=== PATIENT | female | born 1945 | race Caucasian/White ===

== ENCOUNTER → 2016-06-24 | Outpatient (CLI) | payer MEDICARE ==
[~2016-06-24] MED LIST: ACETAMINOPHEN PO; AMLODIPINE BESY10 MG PO; ASPIRIN81 M2 PO; CELECOXIB200 MG PO; DIAZEPAM PO; ESOMEPRAZOLE MA40 MG PO; LEVOTHYROXINE50 MCG PO; OMEPRAZOLE40 M1 PO; PERCOCET 5/321 UDTAB PO; TRAMADOL HCL50 M2 PO; TUMS500 MG PO; VALSARTAN160 MG PO; VITAMIN B122500 MCG PO; VITAMIN C1000 M2 PO; VITAMIN D250000 UNIT PO
--- NOTE | ~2016-06-24 | MR165 ---
STS. [facility] A Service of [facility] & [facility] RADIOLOGY TEXT RESULTS PATIENT: JOSE RAFAEL RESENDIZ LOCATION: [facility] : 47 UNIT #: [id number] AGE: [address]: Peewee Dang MD SEX: F ORDER DR: [id number] [address] [address] [id number] O MR#: [id number] Acc #: [id number] NAME: JOSE RAFAEL RESENDIZ : 1945 SEX: F STUDY DATE/TIME: 06/24/2016 13:08 UNIT: [facility] ROOM: STUDY DESCRIPTION: MR Shoulder Wo Contrast Rt Attending Physician: Peewee Dang M.D. Referring Physician: Peewee Dang M.D. Ordering Physician: Peewee Dang M.D. Primary Care Physician: Arleen Lo M.D. MRI CENTER REPORT This report is preliminary unless electronic signature is present. EXAM MRI of the right shoulder without contrast HISTORY Right shoulder pain for 2 years. Limited range of motion. TECHNIQUE Multiplanar multiecho imaging was performed of the right shoulder, utilizing a high field magnet and dedicated protocol. FINDINGS Examination demonstrates advanced glenohumeral joint osteoarthritis with extensive full-thickness cartilage loss, glenoid and humeral head. There is small amount of subchondral edema and cystic change along the humeral head, as well as extensive cystic change and edema, glenoid. There is a small glenohumeral joint effusion. No loose body. The AC joint demonstrates mild AC joint arthropathy with predominately superiorly directed distal clavicular osteophyte capsular hypertrophy. No active inflammation. There is supraspinatus tendinopathy with focal attenuation of the cuff near the junction of the supraspinatus and infraspinatus tendons, but no definitive full-thickness or discrete partial-thickness tear. Infraspinatus appears intact. Teres minor and subscapularis tendons unremarkable. No muscle atrophy or edema. There is circumferential degeneration of the labrum as a component of glenohumeral joint arthritis. The long tendon of the biceps appears intact. Biceps anchor appears intact. Deltoid and extraarticular soft tissues unremarkable. IMPRESSION STS. [facility] A Service of [facility] & [facility] RADIOLOGY TEXT RESULTS PATIENT: JOSE RAFAEL RESENDIZ LOCATION: [facility] : 47 UNIT #: [id number] AGE: [address]: Peewee Dang MD SEX: F ORDER DR: 1. Advanced glenohumeral joint osteoarthritis with a moderate amount of subchondral edema and cystic change and a small joint effusion compatible with active synovitis. 2. Supraspinatus tendinopathy predominately involving the insertional and pre-insertional fibers. The supraspinatus and infraspinatus tendons are also mildly attenuated, which may reflect some chronic change, but no evidence of full-thickness or partial-thickness tear. Dictated by... Dav Franco M.D. THIS IS AN ELECTRONICALLY VERIFIED REPORT Dav Franco M.D. at 06/28/2016 1:19 PM AYLA/caryn TD: 06/28/2016 12:49 JOB #: [id number] MRI CENTER REPORT Page 1 of 1
--- NOTE | ~2016-06-24 | MR164 ---
[facility] A Service of [facility] & [facility] RADIOLOGY TEXT RESULTS PATIENT: JOSE RAFAEL RESENDIZ LOCATION: [facility] : 47 UNIT #: [id number] AGE: [address]: Peewee Dang MD SEX: F ORDER DR: [id number] [place] [id number] O MR#: [id number] Acc #: [id number] NAME: JOSE RAFAEL RESENDIZ : 1945 SEX: F STUDY DATE/TIME: 06/24/2016 13:37 UNIT: [facility] ROOM: STUDY DESCRIPTION: MR Shoulder Wo Contrast Lt Attending Physician: Peewee Dang M.D. Referring Physician: Peewee Dang M.D. Ordering Physician: Peewee Dang M.D. Primary Care Physician: Arleen Lo M.D. MRI CENTER REPORT This report is preliminary unless electronic signature is present. EXAM MRI of the left shoulder without contrast HISTORY Left shoulder pain for 3 years, worse over the past year, getting progressively worse. TECHNIQUE Multiplanar multiecho imaging was performed of the left shoulder utilizing a high field magnet and dedicated protocol. FINDINGS Examination demonstrates advanced glenohumeral joint osteoarthritis with extensive full-thickness cartilage loss, humeral head and glenoid. Moderate amount of subchondral edema. Small joint effusion. There is a prominent inferiorly-directed osteophyte which may represent a significant blocked full range of motion. Mild AC joint arthropathy. The rotator cuff appears intact without a tear. There is attenuation of the rotator cuff which could reflect chronic tendinopathy but again no discrete partial or full-thickness tear. There is also mild diffuse atrophy of the cuff muscles, which may be related to disuse. The biceps anchor and long tendon of the biceps appear intact. There is circumferential degeneration of the labrum in conjunction with glenohumeral joint arthritis. The deltoid and extraarticular soft tissues unremarkable. Patient does demonstrate mild AC joint arthropathy with some periarticular inflammation. IMPRESSION 1. Advanced glenohumeral joint osteoarthritis. 2. Diffuse thinning of the rotator cuff, primarily the supraspinatus and infraspinatus tendons. This could reflect chronic tendinopathy. This is in conjunction with rotator cuff muscle atrophy probably as a STS. [facility] A Service of [facility] RADIOLOGY TEXT RESULTS PATIENT: JOSE RAFAEL RESENDIZ LOCATION: [facility] : 49 UNIT #: [id number] AGE: [address]: Peewee Dang MD SEX: F ORDER DR: component of disuse. 3. Mild AC joint arthropathy with some periarticular inflammation. Dictated by... Dav Franco M.D. THIS IS AN ELECTRONICALLY VERIFIED REPORT Dav Franco M.D. at 06/28/2016 1:19 PM Stefanie TD: 06/28/2016 12:56 JOB #: [id number] MRI CENTER REPORT Page 1 of 1
== END | disposition home or self-care (01) ==
LOC: SMRI 12:28
DX: M13.811 Other specified arthritis, right shoulder (principal); M75.81 Other shoulder lesions, right shoulder
CPT/HCPCS: 73221

== ENCOUNTER 2016-11-05 10:27 | Inpatient (IN) | payer MEDICARE ==
[~2016-11-05] VITALS: Ht 162.6 cm; Wt 82.4 kg
--- NOTE | ~2016-11-05 | DS ---
Unit #: [id number] #: [id number] Patient: JOSE RAFAEL RESENDIZ [id number] [address] [place], [place] [address] [id number] I MR#: [id number] NAME: JOSE RAFAEL RESENDIZ ROOM: 469 Age: 71 Sex: F Admission Date: 11/05/2016 : 1945 Discharge Date: 11/08/2016 Attending Physician: Damon Hanson M.D. Primary Care Physician: Arleen Lo M.D. DISCHARGE SUMMARY ADMITTING DIAGNOSIS Left total shoulder arthroplasty. DISCHARGE DIAGNOSIS Left total shoulder arthroplasty. PROCEDURE PERFORMED Left total shoulder arthroplasty. BRIEF HISTORY On 11/05/2016, the patient was admitted for a left total shoulder arthroplasty. The patient tolerated the procedure well and was progressed to clear regular diet as tolerated. She had labs performed throughout her hospital stay, which included CBC, which was within normal limits on both 11/06/2016 and 11/07/2016. Throughout her hospital stay, she was placed in a shoulder immobilizer to her left upper extremity and was made nonweightbearing to the operative extremity. She began physical therapy on postop day 1 and tolerated this well. The patient's pain was well controlled throughout her hospital stay as well. On postop day 2, she was able to perform range of motion of her fingers and wrist without any difficulty. On postop day 3, again she appeared to be doing well and was able to perform range of motion and was stable for discharge. CONDITION AT DISCHARGE Stable. DISPOSITION Home. DISCHARGE MEDICATIONS Home medications include Valium 5 mg p.o. q.6 as needed for anxiety, amlodipine 10 mg p.o. at bedtime, valsartan 160 mg p.o. at bedtime, aspirin 81 mg p.o. daily. She is to discontinue tramadol. Omeprazole 40 mg p.o. daily, calcium carbonate 1000 mg p.o. t.i.d., levothyroxine 50 mcg p.o. daily, vitamin B12 of 1000 mcg p.o. daily, vitamin C 1000 mg p.o. daily, vitamin D2 of 50,000 units p.o. weekly. She may use Percocet 5/325 mg 1 to 2 tabs p.o. q.4 hours p.r.n. pain, dispensed #65 with zero refills. DIET The patient may resume regular diet. DISCHARGE INSTRUCTIONS AND FOLLOWUP Unit #: [id number] #: [id number] Patient: JOSE RAFAEL RESENDIZ The patient is stable for discharge home today. We would like to consult [facility] for the patient prior to discharge and order for her to have home health. She is to follow up with Dr. Hanson in 2 weeks. Remain nonweightbearing to her left upper extremity and remain in her sling. She may remove the sling 2 to 3 times per today to perform pendulums and range of motion of her elbow, wrist, and hand. Daily dressing changes to the left upper extremity incision. Please send the patient home with dressing. She may shower but is not to get the incision wet, must keep occlusive dressing over her incision when showering. Dictated by... Radha Mary PA-C for Alix Wray/haily TD: 11/09/2016 23:49 JOB #: [id number] CC: Saray Foster, [facility] DISCHARGE SUMMARY Page 1 of 1 X X DISCHARGE SUMMARY
--- NOTE | ~2016-11-05 | EKG ---
PATIENT: JOSE RAFAEL RESENDIZ UNIT #: [id number] Ventricular Rate: 76 BPM Atrial Rate: 76 BPM P-R Interval: 186 ms QRS Duration: 82 ms Q-T Interval: 364 ms QTC Calculation(Bezet): 409 ms P [place]: 50 degrees Calculated R [place]: -4 degrees Calculated T [place]: 26 degrees Diagnosis Line: Normal sinus rhythm Diagnosis Line: Normal ECG Diagnosis Line: No previous ECGs available Diagnosis Line: Confirmed by ENOC LANDRY MD ([id number]) on 11/07/2016 Diagnosis Line: 10:58:29 PM INTERPRETING MD: GRIS DODSON
--- NOTE | ~2016-11-05 | CR226 ---
[facility] A Service of [facility] & [facility] RADIOLOGY TEXT RESULTS PATIENT: JOSE RAFAEL RESENDIZ LOCATION: [facility] 46- : 47 UNIT #: [id number] AGE: [address]: Damon Hanson MD SEX: F ORDER DR: [id number] [facility] [address] [place], [place] [address] [id number] I MR#: [id number] Acc #: [id number] NAME: JOSE RAFAEL RESENDIZ. : 1945 SEX: F STUDY DATE/TIME: 11/05/2016 16:52 UNIT: [facility] ROOM: [facility] STUDY DESCRIPTION: CR Shoulder 1 View Lt Attending Physician: Damon Hanson M.D. Ordering Physician: Damon Hanson M.D. Primary Care Physician: Arleen Lo M.D. MEDICAL IMAGING REPORT This report is preliminary unless electronic signature is present EXAM Left shoulder. INDICATIONS Left shoulder replacement. Evaluate prosthesis. COMPARISON No comparison. FINDINGS An AP view of the left shoulder was obtained. A left shoulder prosthesis is now present. There is no fracture or dislocation visible. Dictated by... Lyle Garduno M.D. THIS IS AN ELECTRONICALLY VERIFIED REPORT Lyle Garduno M.D. at 11/06/2016 7:57 PM Louis TD: 11/06/2016 12:56 JOB #: [id number] MEDICAL IMAGING REPORT Page 1 of 1 COPY
--- NOTE | ~2016-11-05 | OR ---
Unit #: [id number] #: [id number] Patient: ODALIS RESENDIZ [id number] [address] [address] [id number] I MR#: [id number] NAME: ODALIS RESENDIZ ROOM: 469 Date of Procedure: 11/05/2016 Admission Date: 11/05/2016 Surgeon: Damon Hanson M.D. : 1945 Attending Physician: Damon Hanson M.D. Primary Care Physician: Arleen Lo M.D. OPERATIVE REPORT PREOPERATIVE DIAGNOSIS Left shoulder glenohumeral joint osteoarthritis. POSTOPERATIVE DIAGNOSES 1. Left shoulder glenohumeral joint osteoarthritis. 2. Left shoulder biceps tenosynovitis. PROCEDURES PERFORMED 1. Left total shoulder arthroplasty. 2. Left shoulder biceps tenodesis. IMPLANTS 1. DJO Surgical AltiVate size 12 press-fit humeral stem. 2. A 46 x 16 mm concentric humeral head. 3. Size #42 cemented all-polyethylene glenoid. ALLIGATOR SHEAR OPERATOR Leesa Yousif APRN, NARCISA. ANESTHESIA General with interscalene nerve block. ESTIMATED BLOOD LOSS 100 mL. COMPLICATIONS None apparent. DRAINS None. SPECIMENS Humeral head to Pathology. INDICATIONS FOR PROCEDURE Odalis is a 71-year-old female with a longstanding history of left glenohumeral joint osteoarthritis. She has failed conservative treatment with corticosteroid injections, therapy, and NSAIDs. She now presents for left total shoulder arthroplasty. Risks, benefits, and alternatives have been reviewed and she elected to proceed. DESCRIPTION OF PROCEDURE Unit #: [id number] #: [id number] Patient: ODALIS RESENDIZ The patient was identified in the preoperative holding area. The operative site was marked. Preoperative antibiotics were administered. A regional block was performed. The patient was brought to the operating room and placed supine on the operating table. A general anesthetic was induced. The patient was positioned in the beach-chair position. The left upper extremity was then prepped and draped in sterile fashion. A standard deltopectoral incision was performed. Dissection was carried down through the subcutaneous tissues. The cephalic vein was taken laterally with the deltoid muscle. The subdeltoid space was developed. The rotator cuff was inspected and was intact. The long head of the biceps tendon sheath was opened. There was proliferative tenosynovium overlying the biceps. Biceps tenodesis was performed to the superior border of the pectoralis major tendon utilizing #2 FiberWire. The proximal extent of the biceps was excised. The subscapularis was taken down with a lesser tuberosity osteotomy. The shoulder was then dislocated anteriorly. Circumferential osteophytes were removed. The extramedullary cutting guide was attached. A humeral head osteotomy was performed. The shoulder was then subluxed posteriorly and attention turned to glenoid exposure. A circumferential capsular labral release was performed of the glenoid. The humeral head was then subluxed posteriorly. Once we had adequate exposure, we then sized and drilled the centering guide pin. We then reamed with a 43 mm reamer. We then prepared the peripheral peg holes followed by the central hole. We then trialed and had good stability with our trial with no rocking. The cement was mixed and then the glenoid was prepared for cementing. The cement was injected with a 3 mL syringe. All four peg holes were cemented. The component was impacted in place and achieved excellent stability. The cement was allowed to cure, then the humeral head was brought back into the operative field anteriorly. The humerus was exposed and then the canal was reamed and then sequentially broached up to a size #12 broach. The size #12 had good rotational stability. The broach was removed. Four drill holes were created in the bicipital groove. Four FiberTape sutures were passed for subscapularis repair. These sutures were looped around the stem and the stem was impacted in place and achieved good stability. We trialed multiple components ultimately settling on a 46 x 16 mm head component with concentric humeral head. The real components were impacted in place and the shoulder was reduced. The shoulder had good stability with the head pointing at the glenoid with the arm in neutral rotation. We had good spontaneous recentering on the glenoid with 50% posterior push back. The subscapularis was then repaired with four FiberTape sutures. The rotator interval was closed laterally with #2 FiberWire. The wound was then irrigated with pulsatile lavage. The wound was closed in a layered fashion with 0 Vicryl in the deltopectoral interval followed by 2-0 Vicryl, and running Monocryl in the skin. Steri-Strips and sterile dressings were applied. The patient was placed in a shoulder immobilizer. DISPOSITION The patient was extubated and transported to the recovery room in stable condition. Dictated by... Damon Hanson M.D. Unit #: [id number] #: [id number] Patient: ODALIS RESENDIZ JED/haily TD: 11/06/2016 12:03 JOB #: [id number] OPERATIVE REPORT Page 1 of 1 X Damon Hanson MD X PROCEDURE OPERATIVE NOTE
[~2016-11-05 10:27] MED LIST changes: -PERCOCET 5/321 UDTAB PO
[2016-11-06 02:14] LABS: BASOPHIL# 0.1 X10e3 (0-0.3); BASOPHIL% 0.6 % (0-2.5); EOSINOPHIL# 0.1 X10e3 (0-0.7); EOSINOPHIL% 0.8 % (0.0-7.0); HEMATOCRIT 33.6 % (35.0-45.0); HEMOGLOBIN 11.3 gm/dL (12.0-16.0); LYMPHOCYTE# 2.9 X10e3 (1.0-3.5); LYMPHOCYTE% 28.5 % (17.0-45.0); MEAN CELL VOLUME 91.6 FL (83-96); MEAN CORPUSCULAR HEMOGLOBIN 30.8 PG (28-34); MEAN CORPUSCULAR HGB CONC 33.7 g/dL (30-36); MEAN PLATELET VOLUME 6.7 FL (6.5-11.5); MONOCYTE# 0.9 X10e3 (0-1.0); MONOCYTE% 8.6 % (3.0-12.0); NEUTROPHIL# 6.2 X10e3 (1.5-7.1); NEUTROPHIL% 61.5 % (40-75); PLATELET COUNT 256 X10e3 (140-420); RED BLOOD COUNT 3.67 X10e (3.90-5.30); RED CELL DISTRIBUTION WIDTH 12.6 % (11.0-15.5); WHITE BLOOD COUNT 10.1 X10e3 (4.0-10.5)
[2016-11-06 02:28] LABS: DIFF IND NO
[2016-11-07 02:41] LABS: BASOPHIL% 0.4 % (0-2.5); EOSINOPHIL# 0.1 X10e3 (0-0.7); EOSINOPHIL% 0.7 % (0.0-7.0); HEMATOCRIT 28.4 % (35.0-45.0); HEMOGLOBIN 9.7 gm/dL (12.0-16.0); LYMPHOCYTE# 1.6 X10e3 (1.0-3.5); LYMPHOCYTE% 16.7 % (17.0-45.0); MEAN CELL VOLUME 90.2 FL (83-96); MEAN CORPUSCULAR HEMOGLOBIN 30.7 PG (28-34); MEAN PLATELET VOLUME 6.8 FL (6.5-11.5); MONOCYTE# 0.6 X10e3 (0-1.0); MONOCYTE% 6.4 % (3.0-12.0); NEUTROPHIL# 7.1 X10e3 (1.5-7.1); NEUTROPHIL% 75.8 % (40-75); PLATELET COUNT 237 X10e3 (140-420); RED BLOOD COUNT 3.15 X10e (3.90-5.30); RED CELL DISTRIBUTION WIDTH 12.3 % (11.0-15.5); WHITE BLOOD COUNT 9.4 X10e3 (4.0-10.5)
[2016-11-07 02:43] LABS: DIFF IND NO
[2016-11-08] MEDS ORDERED: PERCOCET 5/321 UDTAB PO (11:15)
== END 2016-11-08 12:33 | disposition home health service (06) | DRG 483 ==
LOC: CSUR 10:27 → CPACUOF 14:04 → CSUR 15:35 → CPACUOF 15:35 → C4C 17:05 → CPACUOF 17:05 → C4C 11-08 12:33
PROVIDERS: Orthopaedic Surgery
PROC: 0LS40ZZ Reposition Left Upper Arm Tendon, Open Approach (ICD-10-PCS; 2016-11-05)
PROC: 0RRK0JZ Replacement of Left Shoulder Joint with Synthetic Substitute, Open Approach (ICD-10-PCS; principal; 2016-11-05 13:00)
DX: M19.012 Primary osteoarthritis, left shoulder (principal); F32.9 Major depressive disorder, single episode, unspecified; M65.812 Other synovitis and tenosynovitis, left shoulder; K21.9 Gastro-esophageal reflux disease without esophagitis
CPT/HCPCS: 73020; 85025; 93005; 94010; 94760; 94761; 97110; 97116; 97161; 97530; C1713; C1776; G8978-GP; G8979-GP; G8980-GP; J0131; J0330; J0690; J2250; J2270; J2370; J2405; J2710; J2795; J3010

== ENCOUNTER → 2016-11-19 | Outpatient (CLI) | payer MEDICARE ==
[~2016-11-19] MED LIST changes: +PERCOCET 5/321 UDTAB PO
--- NOTE | ~2016-11-19 | US84 ---
[id number] [facility]. [facility] [address]. [place], [place] [address] [id number] O MR#: [id number] Acc #: [id number] NAME: JOSE RAFAEL RESENDIZ : 1945 SEX: F STUDY DATE/TIME: 11/19/2016 12:40 UNIT: [facility] ROOM: STUDY DESCRIPTION: US LE Veins Complete Johnnie Stdy Attending Physician: Leesa Yousif Aprn Referring Physician: Leesa Yousif Aprn Ordering Physician: Leesa Yousif Aprn Primary Care Physician: Arleen Lo M.D. MEDICAL IMAGING REPORT This report is preliminary unless electronic signature is present EXAM Bilateral lower extremity venous Doppler 11/19/2016 INDICATION Bilateral calf and ankle pain and swelling for 2 weeks since recent left shoulder surgery. FINDINGS Lozano-scale, color flow, and spectral Doppler waveform analysis is performed of both lower extremity venous systems. There is nonocclusive DVT in the right peroneal vein in the calf and in the posterior tibial vein. There is also occlusive thrombus in the left peroneal vein within the calf. The remaining deep venous structures are patent. IMPRESSION The study is positive for DVT in the right peroneal and posterior tibial veins and in the left peroneal vein. Remaining deep venous structures are patent. ADDENDUM Findings were called to the referring clinician by the care partner at the time the examination was performed. The patient is being sent to the emergency room for further evaluation. STAT * RESULT Dictated by... Dejon Early Jr., M.D. THIS IS AN ELECTRONICALLY VERIFIED REPORT Dejon Early Jr., M.D. at 11/19/2016 4:32 PM URIEL/alyson TD: 11/19/2016 13:52 JOB #: [id number] MEDICAL IMAGING REPORT Page 1 of 1 COPY
== END | disposition home or self-care (01) ==
LOC: CNIV 12:01
DX: M79.89 Other specified soft tissue disorders (principal); M79.662 Pain in left lower leg; M79.661 Pain in right lower leg; I82.541 Chronic embolism and thrombosis of right tibial vein; I82.491 Acute embolism and thrombosis of other specified deep vein of right lower extremity
CPT/HCPCS: 93970